=== PATIENT | male | born 1990 | race African-American/Black ===

== ENCOUNTER 2016-06-08 21:59 | Emergency (ER) | payer SELFPAY ==
[~2016-06-08] VITALS: Ht 172.7 cm; Wt 88.5 kg
--- NOTE | 2016-06-08 22:46 | NUR ---
Patient discharged to home in stable conditon. Written and verbal after care instructions given. Patient verbalizes understanding of instructions.
== END 2016-06-08 22:47 | disposition home or self-care (01) ==
LOC: ER 22:11
DX: S60.221A Contusion of right hand, initial encounter (principal); F10.20 Alcohol dependence, uncomplicated; F17.200 Nicotine dependence, unspecified, uncomplicated; F19.10 Other psychoactive substance abuse, uncomplicated; X58.XXXA Exposure to other specified factors, initial encounter; Y93.89 Activity, other specified; Y92.89 Other specified places as the place of occurrence of the external cause; Y99.8 Other external cause status
CPT/HCPCS: 73130; 99284; A4663